=== PATIENT | female | born 1995 | race African-American/Black ===

== ENCOUNTER 2016-08-03 04:46 | Inpatient (IN) ==
[2016-08-03] MEDS ORDERED: TYLENOL PO PRN (05:43)
[2016-08-03] MEDS ORDERED: PEPCID PO PRN (05:43)
[2016-08-03] MEDS ORDERED: AMPICILLIN 2 GM/NS 2 GM/100 ML IVPB IV ONE (05:43)
[2016-08-03] MEDS ORDERED: PEPCID PO ONE (05:43)
[2016-08-03] MEDS ORDERED: STADOL IV PRN (05:43)
[2016-08-03] MEDS ORDERED: ZOFRAN IV PRN (05:43)
[2016-08-03] MEDS ORDERED: PEPCID IV PRN (05:43)
[2016-08-03] MEDS ORDERED: KEFZOL 1 GM/D5W 1 GM/50 ML IVPB IV PRN (05:43)
[2016-08-03] MEDS ORDERED: PITOCIN 30 UNITS/LR 30 UNITS/500 ML IV.SOLN IV SCH (05:43)
[2016-08-03] MEDS ORDERED: REGLAN PO ONE (05:43)
[2016-08-03] MEDS ORDERED: SODIUM CHLORIDE 0.9% INJ SCH (05:45)
[2016-08-03] MEDS: LR 1,000 ML IV SCH ×2 (06:09→06:49)
[2016-08-03 06:44] LABS: MANUAL DIFF NEEDED? NO
[2016-08-03 06:44] LABS: URINE SOURCE VOIDED
[2016-08-03 06:55] LABS: BASO% 0.2 % (0.0-0.8); EOS# 0.01 X1000 (0.0-0.7); EOS% 0.1 % (0.0-10.0); HEMATOCRIT 35.8 % (37.0-47.0); HEMOGLOBIN 11.6 g/dL (12.0-16.0); IMM GRAN# 0.22 X1000 (0.0-0.04); IMM GRAN% 1.7 % (0.0-0.5); LYMPH# 2.18 X1000 (1.2-3.4); LYMPH% 16.7 % (20.5-51.1); MCH 25.9 PG (27-31); MCHC 32.4 g/dL (33-37); MCV 79.9 FL (81-99); MONO% 6.1 % (1.7-9.3); MPV 11.4 FL (7.4-10.4); NEUT% 75.2 % (42.2-75.2); PLT 216 X1000 (130-400); RBC 4.48 XMIL (4.2-5.4)
[2016-08-03 06:56] LABS: BILIRUBIN URINE NEGATIVE (NEGATIVE); BLOOD URINE 4+ (NEGATIVE); CLARITY CLEAR (CLEAR); COLOR YELLOW; GLUCOSE URINE NEGATIVE (NEGATIVE); LEUKOCYTES URINE 2+ (NEGATIVE); NITRITE URINE POSITIVE (NEGATIVE); PH URINE 6.5; PROTEIN URINE 1+(30 mg/dL) mg/dL (NEGATIVE); UROBILINOGEN URINE 1+(1 mg/dL)
[2016-08-03] MEDS ORDERED: NAROPIN 0.2% EPIDURAL PRN (07:06)
[2016-08-03] MEDS ORDERED: FENTANYL-BUPIV-NS 2 MCG-0.1% 200 ML EPIDURAL PRN (07:06)
[2016-08-03 07:11] LABS: UR AMPHETAMINES QUAL NONE DETECTED (NONE DETECT); UR BARBITUATES QUAL NONE DETECTED (NONE DETECT); UR BENZODIAZEPIN QUAL NONE DETECTED (NONE DETECT); UR CANNABINOIDS QUAL NONE DETECTED (NONE DETECT); UR COCAINE QUAL NONE DETECTED (NONE DETECT); UR MDMA QUAL NONE DETECTED (NONE DETECT); UR METHADONE QUAL NONE DETECTED (NONE DETECT); UR METHAMPHETAMINE QUAL NONE DETECTED (NONE DETECT); UR OPIATES QUAL NONE DETECTED (NONE DETECT); UR OXYCODONE QUAL NONE DETECTED (NONE DETECT); UR PCP QUAL NONE DETECTED (NONE DETECT); UR TCA QUAL NONE DETECTED (NONE DETECT)
[2016-08-03] MEDS ORDERED: XYLOCAINE-MPF 1% ONE (08:55)
[2016-08-03] MEDS ORDERED: MINERAL OIL ONE (08:55)
[2016-08-03] MEDS ORDERED: AMPICILLIN 1 GM/NS 1 GM/50 ML IVPB IV SCH (09:46)
[2016-08-03] MEDS ORDERED: NORCO-10 PO PRN (11:08)
[2016-08-03] MEDS ORDERED: MINERAL OIL PO PRN (11:08)
[2016-08-03] MEDS ORDERED: PITOCIN 30 UNITS/LR 30 UNITS/500 ML IV.SOLN IV ONE (11:08)
[2016-08-03] MEDS ORDERED: BOOSTRIX VACCINE IM ONE (11:08)
[2016-08-03] MEDS ORDERED: BENADRYL PO PRN (11:08)
[2016-08-03] MEDS ORDERED: PITOCIN 20 UNITS/LR 20 UNITS/1,000 ML IV.SOLN IV SCH (11:08)
[2016-08-03] MEDS ORDERED: XYLOCAINE-MPF 1% INJ PRN (11:08)
[2016-08-03] MEDS ORDERED: AMBIEN PO PRN (11:08)
[2016-08-03] MEDS ORDERED: BENADRYL IV PRN (11:08)
[2016-08-03] MEDS ORDERED: CYTOTEC PO PRN (11:08)
[2016-08-03] MEDS ORDERED: PITOCIN IM PRN (11:08)
[2016-08-03] MEDS ORDERED: HYDROXYZINE PO PRN (11:08)
[2016-08-03] MEDS ORDERED: M-M-R II VACCINE SUBQ ONE (11:08)
[2016-08-03] MEDS ORDERED: PERI MEDS (DERMOPLAST/NUPERCAINAL/TUCKS) MISC PRN (11:08)
[2016-08-03] MEDS ORDERED: HYDROXYZINE IM PRN (11:08)
--- NOTE | 2016-08-03 16:52 | OPERATIVE NOTE ---
PROCEDURE DATE: 08/03/2016 DELIVERY NOTE: Patient underwent sterile controlled spontaneous vaginal delivery of a viable female . Weight and Apgars currently unavailable. Cord doubly clamped and cut, and the infant was handed off. Cord blood obtained. Placenta delivered spontaneously and intact. Uterus firm with Pitocin and massage. Uterus, cervix and vagina explored and no lacerations noted. ESTIMATED BLOOD LOSS: 250 mL. cc: Tigist Schumacher MD
[2016-08-03] MEDS: MOTRIN PO PRN (17:50)
[2016-08-03] MEDS: PERICOLACE PO SCH (20:55)
[2016-08-04] MEDS: MOTRIN PO PRN ×2 (03:01→20:02)
[2016-08-04 06:30] LABS: HEMATOCRIT 27.1 % (37.0-47.0); HEMOGLOBIN 8.5 g/dL (12.0-16.0); MCH 25.6 PG (27-31); MCHC 31.4 g/dL (33-37); MCV 81.6 FL (81-99); MPV 11.2 FL (7.4-10.4); RBC 3.32 XMIL (4.2-5.4)
[2016-08-04] MEDS: PERICOLACE PO SCH (20:01)
[2016-08-04] MEDS: NORCO-5 PO PRN (20:02)
[2016-08-04] MEDS ORDERED: EPIFOAM FOAM TOP PRN (20:04)
[2016-08-05] MEDS: MOTRIN PO PRN ×2 (09:11→16:19)
[2016-08-05] MEDS: NORCO-5 PO PRN (09:11)
[2016-08-05 09:15] VITALS: BP 116/75
== END 2016-08-05 18:14 | disposition home or self-care (01) ==
LOC: P.OPLD 04:46 → P.LD 04:51
PROVIDERS: ADMIT Obstetrics & Gynecology; ATTEND Obstetrics & Gynecology